=== PATIENT | male | born 1945 | race African-American/Black ===

== ENCOUNTER 2025-09-25 07:13 | Emergency (ER) | payer MEDICAID ==
[~2025-09-25] VITALS: Ht 177.8 cm; Wt 125.0 kg
[2025-09-25 07:16] VITALS: O2SAT 95
[2025-09-25 07:50] LABS: BASOPHILS % 1.0 % (0.0-2.0); EOSINOPHILS % 2.8 % (0.0-5.0); HEMATOCRIT. 35.7 % (42.0-52.0); HEMOGLOBIN. 11.9 g/dL (14.0-18.0); LYMPHOCYTES % 49.5 % (20.0-50.0); MEAN PLATELET VOLUME 6.9 fl (7.4-10.4); MONOCYTES % 14.8 % (2.0-8.0); NEUTROPHILS % 31.9 % (40.0-76.0); PLATELET 191 x1000/uL (130-400); RED BLOOD CELL COUNT 3.82 mill/uL (4.7-6.1); RED CELL DISTRIBUTION WIDTH 14.1 % (11.6-14.6)
[2025-09-25 08:07] LABS: INR 1.0
[2025-09-25 08:10] LABS: CREATININE 1.4 mg/dL (0.6-1.3); UREA NITROGEN BLOOD 15 mg/dL (9-23)
[2025-09-25 08:11] LABS: PROTEIN TOTAL 7.5 g/dL (6.0-8.3); TROPONIN I HIGH SENSITIVITY 8 ng/L (3.0-53)
[2025-09-25 08:12] LABS: ASPARTATE AMINOTRANSFERASE 17 IU/L (<34); BILIRUBIN DIRECT 0.1 mg/dL (<=3.0); BILIRUBIN TOTAL 0.5 mg/dL (0.1-1.0)
[2025-09-25] MEDS: ASPIRIN 325MG TABLET PO ONE (08:48)
[2025-09-25 10:06] LABS: TROPONIN I HIGH SENSITIVITY 6 ng/L (3.0-53)
[2025-09-25 10:19] VITALS: BP 140/45; PULSE 60; RESP 18; TEMP 36.4; O2SAT 95
== END 2025-09-25 10:34 | disposition home or self-care (01) ==
LOC: ER 07:13
DX: R07.2 Precordial pain (principal); I25.2 Old myocardial infarction
CPT/HCPCS: 36415; 71045; 80048; 80076; 83880; 84484; 85025; 93005; 99285